=== PATIENT | female | born 1990 | race African-American/Black ===

== ENCOUNTER 2020-11-08 21:03 | Emergency (ER) | payer OTHER ==
[~2020-11-08] VITALS: Ht 172.7 cm; Wt 115.2 kg
[2020-11-08 21:30] VITALS: BP 128/70
--- NOTE | 2020-11-08 21:33 | NUR ---
TO LOBBY A/W BED AMBULATORY
--- NOTE | 2020-11-08 23:45 | NUR ---
seen and examined by ady
[2020-11-08] MEDS ORDERED: KETOROLAC 30 MG/ML VIAL IM ONE (23:50)
--- NOTE | 2020-11-08 23:59 | NUR ---
d/c with VSS. d/c education given. opportunity to ask questions given and asnwered. no rx given.
== END 2020-11-09 | disposition home or self-care (01) ==
LOC: MED 21:03
DX: M79.89 Other specified soft tissue disorders (principal)
CPT/HCPCS: 99281; J1885